=== PATIENT | female | born 1975 | race Caucasian/White ===

== ENCOUNTER → 2017-06-30 12:54 | Outpatient (CLI) | payer OTHER, SELFPAY ==
--- NOTE | 2017-06-30 13:00 | HPBI_ITS ---
MAMMOGRAPHY - BILATERAL SCREENING REASON FOR EXAM: Female, 42 years old. Routine annual screening examination. PERTINENT HISTORY: Grandmother with breast cancer. TECHNIQUE: Digital bilateral breast benoit (3D mammographic acquisition) in the CC and MLO projections. 2-D mediolateral oblique (MLO) and craniocaudad (CC) views of both breasts were obtained. CAD: Full Field Digital Mammography with Computer Added Detection was performed. COMPARISON: None. Baseline examination. FINDINGS: Breast Composition: The breasts are heterogeneously dense, which may obscure small masses. There are no dominant masses or suspicious calcifications. No other significant abnormalities are identified. Benign-appearing bilateral axillary lymph nodes. HPBI/SCREENING MAMM (CAD), BILAT IMPRESSION: Negative screening mammogram. Yearly followup mammogram recommended. (A) ASSESSMENT CATEGORY: BIRADS Category 2: Benign. A letter regarding these results will be sent to the patient by the facility within 30 days. Approximately 10% of breast cancers are not detected by mammography. A normal mammogram should not delay biopsy of a clinically suspicious abnormality. [id number] Electronically Signed: Beka Oakley MD at 15:37 EST Tel [phone], Service support ,
== END ==
PROVIDERS: Family Provider Family Medicine; PCP Family Medicine; Visit Provider Family Medicine
DX: Z12.31 Encounter for screening mammogram for malignant neoplasm of breast (principal)
CPT/HCPCS: 77063; 77067

== ENCOUNTER → 2018-03-13 11:54 | Outpatient (CLI) | payer OTHER, SELFPAY ==
--- NOTE | 2018-03-13 11:58 | RAD_ITS ---
STUDY: X-RAY - RIGHT FOOT CLINICAL: Female, 43 years old. Pain. TECHNIQUE: 3 view(s) of the foot. COMPARISON: 04/04/2014. FINDINGS: Normal talus, calcaneus, and tarsal bones. Normal visualized subtalar, talonavicular, calcaneocuboid, tarsal and tarsometatarsal articulations. Normal metatarsi. Normal metatarsophalangeal joint of the great toe. Normal tibial and fibular sesamoid bones. Normal interphalangeal joint of the great toe. Normal phalanges of the great toe. Normal second through fifth metatarsophalangeal joints. Normal interphalangeal joints and phalanges of the lesser toes. The soft tissue structures are unremarkable. There is no demonstrated fracture. RAD/Foot min 3 Views IMPRESSION: Normal x-ray examination of the foot. Electronically Signed: Chris Pastor MD at 12:44 EST , Service support ,
== END ==
PROVIDERS: Family Provider Family Medicine; PCP Family Medicine; Referring Provider Family Medicine; Visit Provider Family Medicine
DX: M79.671 Pain in right foot (principal)
CPT/HCPCS: 73630

== ENCOUNTER → 2018-03-19 11:37 | Outpatient (CLI) | payer OTHER, SELFPAY ==
--- NOTE | 2018-03-19 | LES_PTH ---
PATIENT: PAVEL APONTE LOC: [facility] U#:[id number] AGE/SX: 50/F ROOM: RE03/19/[address]: Dr. Eleazar Ramos MD : 1975 BED: DIS: SPEC #: [id number] RECD: 03/19/18 15:07 STATUS: FLAVIO KASANDRA #: [id number] KUNAL: 03/19/18 00:[address]: Eleazar Ramos DEPT: SURGICAL PATHOLOGY RECD BY: Iain Cardenas ENTERED: 03/19/18 15:08 SP TYPE: Lesion OTHR DR: Dr. Olvin Nicholson MD Tissues: Skin of neck, NOS Procedures: Surgery Specimen Level IV HEADER OPERATION: Shave biopsy PRE-OP DIAGNOSIS: Right neck lesion growing and bleeding TISSUE SUBMITTED: Right neck lesion MICROSCOPIC DIAGNOSIS Right neck lesion, shave biopsy: Consistent with inflamed seborrheic keratosis. RICKEY:neil 03/20/18 COMMENT Clinical correlation and appropriate follow up are necessary. MICROSCOPIC DESCRIPTION Slides are reviewed. GROSS DESCRIPTION Received is one container labeled with the patient's name and not further designated. The specimen consists of a light hughes shave biopsy of skin measuring 0.5 x 0.5 x 0.1 cm. The specimen is totally submitted in one cassette and after being bisected at embedding. / AM:neil 03/19/18 TC:1 [facility]: [id number]
== END ==
PROVIDERS: Family Provider Family Medicine; PCP Family Medicine; Referring Provider Family Medicine; Visit Provider Family Medicine
DX: L98.9 Disorder of the skin and subcutaneous tissue, unspecified (principal)
CPT/HCPCS: 88305

== ENCOUNTER → 2018-03-29 10:21 | Outpatient (CLI) | payer OTHER, SELFPAY ==
--- NOTE | 2018-03-29 10:38 | MRI_ITS ---
STUDY: MRI RIGHT MIDFOOT REASON FOR EXAM: Female, 43 years old. Pain and swelling. TECHNIQUE: Standardized fat and water weighted pulse sequences were obtained in all 3 orthogonal planes. COMPARISON: X-ray March 13, 2018. FINDINGS: Normal first tarsometatarsal articulation. Normal Lisfranc ligament. Normal second and third tarsometatarsal articulations. Normal cuboid fourth and cuboid fifth tarsometatarsal articulation. There is cortical thickening with marrow edema and periosteal reaction of the third metatarsal, series 4 image 15/30 series 6 image 14/24. Normal tibialis anterior tendon. Normal extensor hallucis longus tendon. Normal extensor digitorum longus tendons. Normal peroneus longus tendon and distal insertion. Normal peroneus brevis tendon and distal insertion. Normal intrinsic muscles of the mid and forefoot region. Normal extensor digitorum brevis muscle. Normal subcutis adipose space. MRI/Lower Ext/No Jt/w/o IMPRESSION: Stress fracture of the third metatarsal. Electronically Signed: Adrian Dewitt MD at 9:25 EST , Service support ,
--- OUTSIDE RECORDS SUMMARY | 2018-05-24 12:16 | XMS RPT_ITS ---
:1975 Author Organization OHIP Care Team Providers Name Role Phone Olvin Nicholson Attending Unavailable Olvin Nicholson Primary Care Unavailable Olvni Nicholson Attending Unavailable Olvin Nicholson Referring Unavailable Olvin Nicholson Primary Care Unavailable ASSESSMENT, HEALTH RISK Attending Unavailable Olvin Nicholson Primary Care Unavailable Olvin Nicholson Attending Unavailable Olvin Nicholson Referring Unavailable Olvin Nicholson Primary Care Unavailable Eleazar Ramos Attending Unavailable Eleazar Ramos Referring Unavailable Olvin Nicholson Primary Care Unavailable JOANIE LUTZ Attending Unavailable Delma Coffey Referring Unavailable Olvin Nicholson Primary Care Unavailable PROBLEMS PROBLEMS DATE TYPE CONDITION / ATTENDING STATUS SOURCE CODE 03/13/2018 Unknown M79.671 - Pain Lyn, Active Megan in right foot / [facility] M79.671(ICD-10) Hospital Repository 06/30/2017 Unknown Z12.31 - Lyn Active [place] Encounter for [facility] mammogram for Repository malignant neoplasm of breast / Z12.31(ICD-10) PROCEDURES PROCEDURES No Procedure Records FoundRESULTS RESULTS DEXA BONE DENSITY Observed: 04/10/2018 Status: F Source: [place] STUDY 1:07 PM [facility] REPOSITORY [facility] Imaging Services [address] [place] [address] Dexa Bone Density Study MR#: [id number] Acct: [id number] Name: PAVEL APONTE ANN Rep #: [id number] : 1975 F 43 From: Beka Oakley MD PCP: Olvin Nicholson MD Status: REG CLI Study: Dexa Bone Density Study Date of Exam: 04/10/18 Exam# [id number] Ordering Dr: Mina Nicholson MD STUDY: DUAL ENERGY X-RAY ABSORPTIOMETRY / DXA REASON FOR EXAM: Female, 43 years old. History of multiple fractures. TECHNIQUE: Bone Mineral Density (BMD) measurements of lumbar spine and bilateral hips were obtained. COMPARISON: Comparison is made with prior study dated March 08, 2016. FINDINGS: Lumbar Spine (L1-L4): g/cm2 (1.167) / T-score (0.0) / Z-score (0.0) Findings are suggestive of normal bone density with a low fracture risk. Left Femur Total: g/cm2 (0.801) / T-score (-1.6) / Z- score (-1.3) Left Femoral Neck: g/cm2 (0.803) / T-score (-1.7) / Z- score (-1.1) Right Femur Total: g/cm2 (0.73) / T-score (-1.8) / Z- score (-1.5) Right Femoral Neck: g/cm2 (0.789) / T-score (-1.8) / Z-score (-1.2) The T-Scores on the most recent prior examination were: Lumbar Spine (L1-L4): There has been improvement of bone density since the previous examination. Left Femur Total: which represents an improvement of 1.4%. Right Femur Total: which represents no significant change. . BD/Dexa Bone Density Study IMPRESSION: The patient is considered osteopenic as outlined below according to World Chon Organization (WHO) criteria with a moderate fracture risk. There has been improvement of bone density since the previous examination. Reference Information: The T-score is the number of standard deviations above or below the standard which is normal for young adults at their peak bone mineral density. The World Health Organization (WHO) interprets the T-scores as follows: Above -1 Normal bone density Between -1 and -2.5 Osteopenia Equal to / or below -2.5 Osteoporosis As a practical clinical guideline, osteopenia may be graded as follows: Mild -1 through -1.5 Moderate -1.6 through -2.0 Severe -2.1 through -2.4 The Z-score is the number of standard deviations above or below age-matched controls. A Z-score of less than -1.5 would be considered abnormal. References: 1. NIH Osteoporosis and Related Bone Diseases http://www.osteo.org 2. International Society for Clinical Densitometry http://www.iscd.org 3. National Osteoporosis Foundation http://www.nof.org Electronically Signed: Beka Oakley MD at 8:50 EST Tel [phone], Service support , CC: Olvin Nicholson MD Seconds Handler: Signed LOWER EXT/NO JT/W/O Observed: 03/29/2018 Status: F Source: [place] 10:38 AM [facility] REPOSITORY [facility] Imaging Services [address] [place] [address] Lower Ext/No Jt/w/o MR#: [id number] Acct: [id number] Name: PAVEL APONTE ANN Rep #: [id number] : 1975 F 43 From: Adrian Dewitt MD PCP: Olvin Nicholson MD Status: REG CLI Study: Lower Ext/No Jt/w/o Date of Exam: 03/29/18 Exam# [id number] Ordering Dr: Delma Coffey DPM STUDY: MRI RIGHT MIDFOOT REASON FOR EXAM: Female, 43 years old. Pain and swelling. TECHNIQUE: Standardized fat and water weighted pulse sequences were obtained in all 3 orthogonal planes. COMPARISON: X-ray March 13, 2018. FINDINGS: Normal first tarsometatarsal articulation. Normal Lisfranc ligament. Normal second and third tarsometatarsal articulations. Normal cuboid fourth and cuboid fifth tarsometatarsal articulation. There is cortical thickening with marrow edema and periosteal reaction of the third metatarsal, series 4 image 15/30 series 6 image 14/24. Normal tibialis anterior tendon. Normal extensor hallucis longus tendon. Normal extensor digitorum longus tendons. Normal peroneus longus tendon and distal insertion. Normal peroneus brevis tendon and distal insertion. Normal intrinsic muscles of the mid and forefoot region. Normal extensor digitorum brevis muscle. Normal subcutis adipose space. MRI/Lower Ext/No Jt/w/o IMPRESSION: Stress fracture of the third metatarsal. Electronically Signed: Adrian Dewitt MD at 9:25 EST , Service support , CC: KATHERYN Coffey; Olvin Nicholson MD Seconds Handler: Signed LESION (CHOOSE SITE) Observed: 03/19/2018 Status: F Source: [place] 12:00 AM [facility] REPOSITORY Patient: PAVEL APONTE : 1975 (43/F) Acct Num: [id number] Phys: Richard LEACH,Eleazar Unit Num: [id number] Loc: LABSPEC Specimen: [id number] Received: 03/19/18 - 1507 Spec Type: Lesion TISSUES 1 TISSUES: Skin of neck, NOS COMMENT Clinical correlation and appropriate follow up are necessary. GROSS DESCRIPTION Received is one container labeled with the patient's name and not further designated. The specimen consists of a light hughes shave biopsy of skin measuring 0.5 x 0.5 x 0.1 cm. The specimen is totally submitted in one cassette and after being bisected at embedding. / AM: 03/19/18 TC:1 CPT: 99888 HEADER OPERATION: Shave biopsy PRE-OP DIAGNOSIS: Right neck lesion growing and bleeding TISSUE SUBMITTED: Right neck lesion MICROSCOPIC DESCRIPTION Slides are reviewed. MICROSCOPIC DIAGNOSIS Right neck lesion, shave biopsy: Consistent with inflamed seborrheic keratosis. SJ: 03/20/18 Signed Juan Nunez 03/20/18 <signature on file> Performed By: #### PLES #### [facility] [address] [place], [place], [address] FOOT MIN 3 VIEWS Observed: 03/13/2018 Status: F Source: [place] 11:58 AM [facility] REPOSITORY [facility] Imaging Services [address] [place] [address] Foot min 3 Views MR#: [id number] Acct: [id number] Name: PAVEL APONTE Rep #: [id number] : 1975 F 43 From: Chris Pastor MD PCP: Olvin Nicholson MD Status: REG CLI Study: Foot min 3 Views Date of Exam: 03/13/18 Exam# [id number] Ordering Dr: Mina Nicholson MD STUDY: X-RAY - RIGHT FOOT CLINICAL: Female, 43 years old. Pain. TECHNIQUE: 3 view(s) of the foot. COMPARISON: 04/04/2014. FINDINGS: Normal talus, calcaneus, and tarsal bones. Normal visualized subtalar, talonavicular, calcaneocuboid, tarsal and tarsometatarsal articulations. Normal metatarsi. Normal metatarsophalangeal joint of the great toe. Normal tibial and fibular sesamoid bones. Normal interphalangeal joint of the great toe. Normal phalanges of the great toe. Normal second through fifth metatarsophalangeal joints. Normal interphalangeal joints and phalanges of the lesser toes. The soft tissue structures are unremarkable. There is no demonstrated fracture. RAD/Foot min 3 Views IMPRESSION: Normal x-ray examination of the foot. Electronically Signed: Chris Pastor MD at 12:44 EST , Service support , CC: Olvin Nicholson MD Seconds Handler: Signed CBC, EMPLOYEE Collected: 12/16/2017 Status: F Source: [place] 10:04 AM [facility] REPOSITORY TYPE CODE TESTS RESULT OUT OF RANGE REFERENCE UNITS LAB L100.1000 4.4-11.0 K/mm3 Normal WBC 7.2 LAB L100.1200 4.2-5.4 M/mm3 Low RBC 4.10 LAB L100.1300 12.0-15.0 g/dl Normal HGB 13.7 LAB L100.1400 37-47 % Normal HCT 40.1 LAB L100.1500 81-99 fL Normal MCV 97.8 LAB L100.1600 27.0-32.0 pg High MCH 33.4 LAB L100.1700 32-36 g/gl Normal MCHC 34.2 LAB L100.1810 11.6-14.6 % Normal RDW CV 12.3 LAB L100.1820 35.1-43.9 fl Normal RDW SD 43.1 LAB L100.1900 150-450 K/mm3 Normal PLT 246 LAB L100.2000 6.2-12.0 fl Normal MPV 10.6 LAB L100.2110 47-70 % High NEUT% 70.6 LAB L100.2210 19-41 % Normal LY% 19.6 LAB L100.2310 0-10 % Normal MONO% 8.5 LAB L100.2410 0-5 % Normal EO% 0.6 LAB L100.2510 0-1 % Normal BASO% 0.1 LAB L100.2620 2.0-7.7 X10 3/uL Normal Absolute Neut 5.1 LAB L100.2720 0.83-4.51 X10 3/ul Normal Absolute Lymph 1.41 Performed By: #### L100.0200 #### [facility] [address] [place], [place], [address] URINALYSIS, EMPLOYEE Collected: 12/16/2017 Status: F Source: [place] 10:04 AM [facility] REPOSITORY TYPE CODE TESTS RESULT OUT OF RANGE REFERENCE UNITS LAB L400.3000 Yellow COLOR Normal Yellow LAB L400.3050 Clear Normal CLARITY Clear LAB L400.3200 Normal mg/dl Normal GLUCOSE, UR Normal LAB L400.3300 Negative mg/dL Normal BILIRUBIN URINE Negative LAB L400.3400 Negative mg/dl Normal KETONE UR Negative LAB L400.3465 1.002-1.030 Normal SP.GR. DIPSTX 1.010 LAB L400.3550 5.0 - 8.0 pH UR Normal 7.0 LAB L400.3600 Negative mg/dl PROT Normal DIPSTX Negative LAB L400.3700 Normal mg/dl Normal UROBILI Normal LAB L400.3750 Negative Normal NITRITE UR Negative LAB L400.3780 Negative /ul High 10 OCCULT BLOOD-UR LAB L400.3800 Negative /ul High LEUK 25 ESTERASE Performed By: #### L400.0100 #### [facility] [address] [facility], [address] EMPLOYEE PROFILE Collected: 12/16/2017 Status: F Source: [place] 10:04 AM [facility] REPOSITORY TYPE CODE TESTS RESULT OUT OF RANGE REFERENCE UNITS LAB L501.0100 74-106 mg/dL Normal GLU 89 Result Comment: Please note revised GLUCOSE reference range effective 2017. LAB L501.1000 7-18 mg/dL Normal BUN 8 LAB L501.1100 0.55-1.02 mg/dL Normal CREAT,SERUM 0.81 Result Comment: The validity of the calculated GFR AND GFRAA in patients over 70 years has not been determined. Clinical correlation is essential. LAB L501.1110 >60 mL/min Normal EST GFR 82 Result Comment: Non- GFR Calc LAB L501.1115 >60 mL/min Normal EST GFR - AA 99 Result Comment: GFR Calc LAB L501.1300 10-20 RATIO Low BUN/CRE 9.9 LAB L501.1400 2.6-6.0 mg/dL Normal URIC 5.7 Result Comment: The drugs N-Acetylcysteine and Metamizole may falsely depress this assay. LAB L501.1500 6.4-8.2 g/dL Normal T PROT 7.8 LAB L501.1800 3.2-5.0 g/dL Normal ALB 3.9 LAB L501.1950 2.2-4.2 g/dL Normal GLOB 3.9 LAB L501.2000 0.9-2.4 RATIO Normal A/G 1.0 LAB L501.2200 8.5-10.1 mg/dL Normal CA 9.0 LAB L501.2300 2.5-4.9 mg/dL Normal PHOS 3.2 LAB L501.4100 15-37 U/L Normal AST 16 LAB L501.4305 45-117 U/L Normal ALK P 95 LAB L501.4405 13-56 U/L Normal ALT 24 LAB L501.4600 0.20-1.00 mg/dL Normal T BILI 0.50 LAB L501.4700 0.00-0.30 mg/dL Normal D BILI 0.15 LAB L501.4900 200 mg/dL Normal CHOL 183 Result Comment: <200 mg/dL Desirable 200-240 mg/dL Borderline >240 mg/dL High Risk LAB L501.5000 mg/dL Normal TRIG 125 Result Comment: The drugs N-Acetylcysteine and Metamizole may falsely depress this assay. Serum Triglycerides Reference Interval Normal <150 mg/dL Borderline high 150 - 199 mg/dL High 200 - 499 mg/dL Very High > or = 500 mg/dL LAB L501.5300 136-145 mmol/L Normal NA 137 LAB L501.5600 3.5-5.1 mmol/L Normal K 4.5 LAB L501.5900 98-107 mmol/L Normal CL 104 LAB L501.6100 21.0-32.0 mmol/L Normal CO2 29.0 LAB L501.6200 5-15 Low 4 GAP LAB L501.6400 mg/dL Normal HDL 75 Result Comment: The drugs N-Acetylcysteine and Metamizole may falsely depress this assay. Reference Range HDL <40 mg/dL Low HDL Cholesterol HDL >or= 60 mg/dL High HDL Cholesterol LAB L501.6475 Normal CHOL:HDL 2.40 LAB L501.6500 0-130 mg/dL Normal LDL 83 LAB L501.6600 5-40 mg/dL Normal VLDL 25 LAB L504.2610 84-246 U/L Normal LDH 173 Performed By: #### L500.2900 #### [facility] [address] [facility]. [place], [place], [address] NICOTINE URINE DRUG Collected: 12/16/2017 Status: F Source: [place] SCREEN 10:04 AM [facility] REPOSITORY TYPE CODE TESTS RESULT OUT OF RANGE REFERENCE UNITS LAB L505.6250 TO BE Normal CONFIRMED Result Comment: CONFIRMATORY TESTING FOR ALL POSITIVE URINE DRUG SCREEN RESULTS WILL ONLY BE SENT OUT UPON PHYSICIAN ORDER. The results of Urine Drug Screen methods provide only preliminary analytical test results. A more specific alternate chemical method must be used in order to obtain a confirmed analytical result. Gas chromatography/mass spectrometery (GC/MS) is the preferred confirmatory method. Clinical consideration and professional judgement should be applied to any drug of abuse test result, particularly when preliminary positive results are used. LAB L505.6270 <200 ng/mL Normal COT DRG Negative SCREEN Result Comment: Cotinine is the first-stage metabolite of Nicotine. Performed By: #### L505.6240 #### [facility] [address] [facility]. [place], [place], [address] SCREENING MAMM (CAD), Observed: 06/30/2017 Status: F Source: [place] BIL[place] 1:00 PM [facility] REPOSITORY [facility] Imaging Services [address] [place] [address] SCREENING MAMM (CAD), BILAT MR#: [id number] Acct: [id number] Name: PAVEL APONTE Rep #: [id number] : 1975 F 42 From: Beka Oakley MD PCP: Olvin Nicholson MD Status: REG CLI Study: SCREENING MAMM (CAD), BILAT Date of Exam: 06/30/17 Exam# [id number] Ordering Dr: Mina Nicholson MD MAMMOGRAPHY - BILATERAL SCREENING REASON FOR EXAM: Female, 42 years old. Routine annual screening examination. PERTINENT HISTORY: Grandmother with breast cancer. TECHNIQUE: Digital bilateral breast benoit (3D mammographic acquisition) in the CC and MLO projections. 2-D mediolateral oblique (MLO) and craniocaudad (CC) views of both breasts were obtained. CAD: Full Field Digital Mammography with Computer Added Detection was performed. COMPARISON: None. Baseline examination. FINDINGS: Breast Composition: The breasts are heterogeneously dense, which may obscure small masses. There are no dominant masses or suspicious calcifications. No other significant abnormalities are identified. Benign-appearing bilateral axillary lymph nodes. HPBI/SCREENING MAMM (CAD), BILAT IMPRESSION: Negative screening mammogram. Yearly followup mammogram recommended. (A) ASSESSMENT CATEGORY: BIRADS Category 2: Benign. A letter regarding these results will be sent to the patient by the facility within 30 days. Approximately 10% of breast cancers are not detected by mammography. A normal mammogram should not delay biopsy of a clinically suspicious abnormality. [id number] Electronically Signed: Beka Oakley MD at 15:37 EST Tel [phone], Service support , CC: Olvin Nicholson MD Seconds Handler: Signed ALLERGIES ALLERGIES DATE TYPE / CODE NAME / CODE REACTION SEVERITY SOURCE 04/04/2014 Drug amoxicillin/ Unknown Unknown [facility] Allergy/4160 [id number]([facility] [address](SNOMED XNORM) Repository CT) ENCOUNTERS ENCOUNTERS ADMIT/DISCHARGE ACCOUNT ADMITTING ENCOUNTER LOCATION SOURCE NUMBER CLASS 04/10/2018 [id number] Ambulatory Megan [facility]ett 5 [facility] ing:OPBD Repository 03/29/2018 [id number] Ambulatory [place] Megan 1 [facility] ing:MRI Repository 03/19/2018 [id number] Ambulatory Megan Crockett 9 [facility] ing:LABSPEC Repository 03/13/2018 [id number] Ambulatory [place] [facility] 0 [facility] ing:MTRAD Repository 12/15/2017 [id number] Ambulatory [place] [facility] 0 [facility] ing:HW Repository 06/30/2017 [id number] Ambulatory [place] Cro[place] 7 [facility] ing:BI Repository PAYERS PAYERS ENCOUNTER GUARANTOR PAYER SUBSCRIBER SOURCE 04/10/2018 RICCO Jones Primary Insurance:[facility] [facility] [facility] STERNERDOB: [facility] [place]: Repository [address]Mbr: [phone]) [id number] [phone] () Date:9610-97-11YS [address] [address], [place] [address]WU: CHECK WEBSITE 04/10/2018 Secondary NOT GIVENUNK Megan Insurance:SELF PAY [facility] Number: Effective Repository Date:2017-12-27 03/29/2018 RICCO Jones Primary Insurance:[facility] [facility]: [facility] [id number] Number: Repository [id number]: [phone]) [id number] [phone] (HP) Date:0974-23-65AM [address] [address], [place] [address]CO: CHECK WEBSITE 03/29/2018 Secondary NOT GIVENUNK Megan Insurance:SELF PAY [facility] Number: Effective Repository Date:2018-03-19 03/19/2018 RICCO F Primary Insurance[facility] [facility] [id number] Number: Repository [id number]: [phone] [id number] [phone] (HP) Date:0003-67-39SL [address] [address], [place] [address]JH: CHECK WEBSITE 03/19/2018 Secondary NOT GIVENUNK [place] Insurance:SELF PAY [facility] Number: Effective Repository Date:2018-03-19 03/13/2018 RICCO F Primary Insurance:[place] [id number] [facility]: [facility] 1935[place]34-[place] Number: Repository [id number]: [phone] [id number] [phone] () Date:7871-07-70FE [address] [address], [place] [address]GZ: CHECK WEBSITE 03/13/2018 Secondary NOT GIVENUNK Megan Insurance:SELF PAY [facility] Number: Effective Repository Date:2018-03-13 12/15/2017 RICCO F Primary NOT GIVENUNK Megan [id number] Insurance:SELF PAY [place] Number: Effective Repository [id number]: ([phone]) Date:2017-12-15 [phone] (HP) 06/30/2017 RICCO F Primary Insurance:[place] [id number] [facility] [id number] Number: Repository [id number]: [id number] [phone] Date:7623-62-60BM [address] () [address], [place] [address]FA: CHECK WEBSITE 06/30/2017 Secondary NOT GIVENUNK Megan Insurance:SELF PAY [facility] Number: Effective Repository Date:2017-06-07
== END ==
PROVIDERS: Family Provider Family Medicine; PCP Family Medicine; Referring Provider Podiatrist Foot & Ankle Surgery
DX: M79.671 Pain in right foot (principal)
CPT/HCPCS: 73718

== ENCOUNTER → 2018-04-10 13:04 | Outpatient (CLI) | payer OTHER, SELFPAY ==
--- NOTE | 2018-04-10 13:07 | BD_ITS ---
STUDY: DUAL ENERGY X-RAY ABSORPTIOMETRY / DXA REASON FOR EXAM: Female, 43 years old. History of multiple fractures. TECHNIQUE: Bone Mineral Density (BMD) measurements of lumbar spine and bilateral hips were obtained. COMPARISON: Comparison is made with prior study dated March 08, 2016. FINDINGS: Lumbar Spine (L1-L4): g/cm2 (1.167) / T-score (0.0) / Z-score (0.0) Findings are suggestive of normal bone density with a low fracture risk. Left Femur Total: g/cm2 (0.801) / T-score (-1.6) / Z-score (-1.3) Left Femoral Neck: g/cm2 (0.803) / T-score (-1.7) / Z-score (-1.1) Right Femur Total: g/cm2 (0.73) / T-score (-1.8) / Z-score (-1.5) Right Femoral Neck: g/cm2 (0.789) / T-score (-1.8) / Z-score (-1.2) The T-Scores on the most recent prior examination were: Lumbar Spine (L1-L4): There has been improvement of bone density since the previous examination. Left Femur Total: which represents an improvement of 1.4%. Right Femur Total: which represents no significant change. . BD/Dexa Bone Density Study IMPRESSION: The patient is considered osteopenic as outlined below according to World Chon Organization (WHO) criteria with a moderate fracture risk. There has been improvement of bone density since the previous examination. Reference Information: The T-score is the number of standard deviations above or below the standard which is normal for young adults at their peak bone mineral density. The World Health Organization (WHO) interprets the T-scores as follows: Above -1 Normal bone density Between -1 and -2.5 Osteopenia Equal to / or below -2.5 Osteoporosis As a practical clinical guideline, osteopenia may be graded as follows: Mild -1 through -1.5 Moderate -1.6 through -2.0 Severe -2.1 through -2.4 The Z-score is the number of standard deviations above or below age-matched controls. A Z-score of less than -1.5 would be considered abnormal. References: 1. NIH Osteoporosis and Related Bone Diseases http://www.osteo.org 2. International Society for Clinical Densitometry http://www.iscd.org 3. National Osteoporosis Foundation http://www.nof.org Electronically Signed: Beka Oakley MD at 8:50 EST Tel [phone], Service support ,
--- OUTSIDE RECORDS SUMMARY | 2018-05-27 16:31 | XMS RPT_ITS ---
:1975 Author Organization OHIP Support Name Relationship Address Phone FAYLEANNEE Unavailable [address] + [place] [address] WC Unavailable [address] + [place] [address] RICCO APONTE Unavailable [address] + [place] [address] WC Unavailable [address] + [place] [address] RICCO APONTE Unavailable [address] + [place] [address] WC Unavailable [address] + [place] [address] RICCO APONTE Unavailable [address] + [place] [address] WC Unavailable [address] + [place] [address] RICCO APONTE Unavailable [address] + [place] [address] WC Unavailable [address] + [place] [address] RICCO APONTE Unavailable [address] + [place] [address] WC Unavailable [address] + [place] [address] RICCO APONTE Unavailable [address] + [place] [address] WC Unavailable [address] + [place] [address] RICCO APONTE Unavailable [address] + [place] [address] WC Unavailable [address] + [place] [address] RICCO APONTE Unavailable [address] + [place] [address] [facility] Unavailable [address] + [place] [address] Care Team Providers Name Role Phone Olvin Nicholson Attending Unavailable Ranney, Christopher Primary Care Unavailable Ranney, Christanner Attending Unavailable Ranney, Christopher Primary Care Unavailable Lyn, Olvin Attending Unavailable Ranney, Christopher Referring Unavailable Ranney, Christopher Primary Care Unavailable ASSESSMENT, HEALTH RISK Attending Unavailable Ranney, Christopher Primary Care Unavailable Ranlogan, Anderser Attending Unavailable Ranney, Christopher Referring Unavailable Ranney, Christopher Primary Care Unavailable Lyn, Olvin Attending Unavailable Lyn, Christopher Referring Unavailable Ranney, Christopher Primary Care Unavailable Ranlogan, Olvin Attending Unavailable Ranney, Christopher Referring Unavailable Ranney, Christopher Primary Care Unavailable Eleazar Ramos Attending Unavailable Eleazar Ramos Referring Unavailable [facility] Unavailable JOANIE LUTZ Attending Unavailable Delma Coffey Referring Unavailable Ranney, Christopher Primary Care Unavailable PROBLEMS PROBLEMS DATE TYPE CONDITION / ATTENDING STATUS SOURCE CODE 03/13/2018 Unknown M79.671 - Pain Jonologan, Active [place] in right foot / [facility] M79.671(ICD-10) Hospital Repository 06/30/2017 Unknown Z12.31 - Lyn Active [place] Encounter for [facility] mammogram for Repository malignant neoplasm of breast / Z12.31(ICD-10) PROCEDURES PROCEDURES No Procedure Records FoundRESULTS RESULTS LOWER EXT/NO JT/W/O Observed: 05/17/2018 Status: F Source: [place] 6:06 PM [facility] REPOSITORY [facility] Imaging Services [address] [place] [address] Lower Ext/No Jt/w/o MR#: [id number] Acct: [id number] Name: PAVEL APONTE ANN Rep #: [id number] : 1975 F 43 From: Sylvester Rosado MD PCP: Olvin Nicholson MD Status: REG CLI Study: Lower Ext/No Jt/w/o Date of Exam: 05/17/18 Exam# [id number] Ordering Dr: Mina Nicholson MD STUDY: MRI LEFT MIDFOOT REASON FOR EXAM: Female, 43 years old. Foot swelling with distal fifth metatarsal pain. No trauma. TECHNIQUE: Standardized fat and water weighted pulse sequences were obtained in all 3 orthogonal planes. COMPARISON: X-rays of the left foot dated May 08, 2018. FINDINGS: Normal talonavicular articulation. Normal calcaneocuboid articulation. Normal navicular-cuneiform articulations. Normal intercuneiform articulations. Normal first tarsometatarsal articulation. Normal Lisfranc ligament. Normal second and third tarsometatarsal articulations. Normal cuboid fourth and cuboid fifth tarsometatarsal articulation. Normal first through fifth metatarsi. Normal tibialis anterior tendon. Normal extensor hallucis longus tendon. Normal extensor digitorum longus tendons. Normal peroneus longus tendon and distal insertion. Normal peroneus brevis tendon and distal insertion. Normal intrinsic muscles of the mid and forefoot region. Normal extensor digitorum brevis muscle. Normal subcutis adipose space. MRI/Lower Ext/No Jt/w/o IMPRESSION: Normal MRI of the midfoot. Electronically Signed: Sylvester Rosado MD at 14:40 EST , Service support , CC: Olvin Nicholson MD Health Claims Examiner: Signed FOOT MIN 3 VIEWS Observed: 05/08/2018 Status: F Source: [place] 3:59 PM [facility] [place] [facility] Imaging Services [address] [place] [address] Foot min 3 Views MR#: [id number] Acct: [id number] Name: PAVEL APONTE ANN Rep #: [id number] : 1975 F 43 From: Jose Coburn MD PCP: Olvin Nicholson MD Status: REG CLI Study: Foot min 3 Views Date of Exam: 05/08/18 Exam# [id number] Ordering Dr: Mina Nicholson MD STUDY: X-RAY - LEFT FOOT CLINICAL: Fifth digit/metatarsal pain, no specific injury. TECHNIQUE: 3 view(s) of the foot. COMPARISON: None. FINDINGS: There is a small plantar calcaneal enthesophyte. Normal visualized subtalar, talonavicular, calcaneocuboid, tarsal and tarsometatarsal articulations. Normal metatarsi. Normal metatarsophalangeal joint of the great toe. Normal tibial and fibular sesamoid bones. Normal interphalangeal joint of the great toe. Normal phalanges of the great toe. Normal second through fifth metatarsophalangeal joints. Normal interphalangeal joints and phalanges of the lesser toes. The soft tissue structures are unremarkable. RAD/Foot min 3 Views IMPRESSION: Small plantar calcaneal enthesophyte. Otherwise, unremarkable x-ray examination of the left foot. Electronically Signed: Jose Coburn MD at 9:48 EST Tel , Service support , CC: Olvin Nicholson MD Health Claims Examiner: Signed VITAMIN D,25 HYDROXY Collected: 04/19/2018 Status: F Source: [place] 10:48 AM [facility] [place] TYPE CODE TESTS RESULT OUT OF REFERENCE UNITS RANGE LAB L506.1000 29.95-100.01 ng/mL Low Vitamin D 27.5 25-OH Result Comment: Vitamin D 25(OH) Status Range Deficiency <20 ng/mL (50nmol/L) Insuffciency 20 - 30 ng/mL (50 - 75 nmol/L) Sufficiency 30 - 100 ng/mL (75 - 250 nmol/L) Toxicity >100 ng/mL (>250 nmol/L) Performed By: #### L506.1000 #### [facility] [address] [place], [address] PTHIN Collected: 04/19/2018 Status: F Source: [place] 10:48 AM [facility] [place] TYPE CODE TESTS RESULT OUT OF RANGE REFERENCE UNITS LAB L509.1000 18.4-80.1 pg/mL Normal PTHIN 26.6 Performed By: #### L509.1000 #### [facility] [address] [place], [address] BASIC METABOLIC Collected: 04/19/2018 Status: F Source: [place] PROFILE (BMP) 10:48 AM [facility] [place] TYPE CODE TESTS RESULT OUT OF RANGE REFERENCE UNITS LAB L501.0100 74-106 mg/dL Normal GLU 106 Result Comment: Fasting Glucose result from 100 to 125 mg/dL suggests IMPAIRED HOMEOSTASIS per A.D.A. criteria. Please note revised GLUCOSE reference range effective 2017. LAB L501.1000 7-18 mg/dL Normal BUN 13 LAB L501.1100 0.55-1.02 mg/dL Normal CREAT,SERUM 0.78 Result Comment: The validity of the calculated GFR AND GFRAA in patients over 70 years has not been determined. Clinical correlation is essential. LAB L501.1110 >60 mL/min Normal EST GFR 85 Result Comment: Non- GFR Calc LAB L501.1115 >60 mL/min Normal EST GFR - AA 103 Result Comment: GFR Calc LAB L501.1300 10-20 RATIO Normal BUN/CRE 16.7 LAB L501.2200 8.5-10.1 mg/dL CA Normal 9.0 LAB L501.5300 136-145 mmol/L NA Normal 140 LAB L501.5600 3.5-5.1 mmol/L K Normal 3.8 LAB L501.5900 98-107 mmol/L CL Normal 105 LAB L501.6100 21.0-32.0 mmol/L Normal CO2 27.0 LAB L501.6200 5-15 Normal GAP 8 Performed By: #### L500.2500, L501.2300, L501.5200, L501.9520 #### [facility] [address] [place], [address] PHOSPHORUS Collected: 04/19/2018 Status: F Source: [place] 10:48 AM [facility] [place] TYPE CODE TESTS RESULT OUT OF RANGE REFERENCE UNITS LAB L501.2300 2.5-4.9 mg/dL Normal PHOS 3.8 Performed By: #### L500.2500, L501.2300, L501.5200, L501.9520 #### [facility] [address] [place], [address] MAGNESIUM Collected: 04/19/2018 Status: F Source: [place] 10:48 AM [facility] [place] TYPE CODE TESTS RESULT OUT OF RANGE REFERENCE UNITS LAB L501.5200 1.6-2.6 mg/dL Normal MG 1.9 Performed By: #### L500.2500, L501.2300, L501.5200, L501.9520 #### [facility] [address] [place], [address] THYROID STIM HORMONE Collected: 04/19/2018 Status: F Source: [place] (TSH) 10:48 AM [facility] [place] TYPE CODE TESTS RESULT OUT OF RANGE REFERENCE UNITS LAB L501.9520 0.358-3.74 uIU/mL Normal TSH 1.93 Performed By: #### L500.2500, L501.2300, L501.5200, L501.9520 #### [facility] [address] [place], [address] CALCIUM IONIZED Collected: 04/19/2018 Status: F Source: [place] 10:48 AM [facility] [place] TYPE CODE TESTS RESULT OUT OF RANGE REFERENCE UNITS LAB L3100.9600 4.5-5.6 mg/dL Normal IONIZED CA 5.4 Result Comment: Performed at: - [facility] [id number] Driving Instructor: Alex Topete PhD, Phone: [phone] Performed By: #### L3100.9600 #### [facility] (refer to report for specific site) refer to report for address and phone number DEXA BONE DENSITY Observed: 04/10/2018 Status: F Source: [place] STUDY 1:07 PM [facility] [place] [facility] Imaging Services [address] [place] [address] Dexa Bone Density Study MR#: [id number] Acct: [id number] Name: PAVEL APONTE Rep #: [id number] : 1975 F 43 From: Beka Oakley MD PCP: Olvin Nicholson MD Status: REG CLI Study: Dexa Bone Density Study Date of Exam: 04/10/18 Exam# [id number] Ordering Dr: Mina Nicholson MD STUDY: DUAL [...] Beka Oakley MD at 8:50 EST Tel [phone], Service support , CC: Olvin Nicholson MD Health Claims Examiner: Signed LOWER EXT/NO JT/W/O Observed: 03/29/2018 Status: F Source: [place] 10:38 AM [facility] [place] [facility] Imaging Services [address] [place] [address] Lower Ext/No Jt/w/o MR#: [id number] Acct: [id number] Name: PAVEL APONTE ANN Rep #: [id number] : 1975 F 43 From: Adrian Dewitt MD PCP: Olvin Nicholson MD Status: REG CLI Study: Lower Ext/No Jt/w/o Date of Exam: 03/29/18 Exam# [id number] Ordering Dr: Delma Coffey DPM STUDY: MRI [...] , CC: KATHERYN Coffey; Olvin Nicholson MD Health Claims Examiner: Signed LESION (CHOOSE SITE) Observed: 03/19/2018 Status: F Source: [place] 12:00 AM [facility] [place] Patient: PAVEL APONTE : 1975 (43/F) Acct Num: [id number] Phys: Richard LEACH,Eleazar Unit Num: [id number] Loc: [facility] Specimen: [id number] Received: 03/19/18 - 1507 Spec Type: Lesion [...] and after being bisected at embedding. / AM:neil 03/19/18 TC:1 CPT: 59648 HEADER OPERATION: Shave biopsy PRE-OP DIAGNOSIS: Right neck lesion growing and bleeding TISSUE SUBMITTED: Right neck lesion MICROSCOPIC DESCRIPTION Slides are reviewed. MICROSCOPIC DIAGNOSIS Right neck lesion, shave biopsy: Consistent with inflamed seborrheic keratosis. SJ:neil 03/20/18 Signed Juan Nunez 03/20/18 <signature on file> Performed By: #### PLES #### [facility] [address] [facility] [place], [place], [address] FOOT MIN 3 VIEWS Observed: 03/13/2018 Status: F Source: [place] 11:58 AM [facility] [place] [facility] Imaging Services [address] [place] [address] Foot min 3 Views MR#: [id number] Acct: [id number] Name: PAVEL APONTE ANN Rep #: [id number] : 1975 F 43 From: Chris Pastor MD PCP: Olvin Nicholson MD Status: REG CLI Study: Foot min 3 Views Date of Exam: 03/13/18 Exam# [id number] Ordering Dr: Mina Nicholson MD STUDY: X-RAY [...] Service support , CC: Olvin Nicholson MD Health Claims Examiner: Signed CBC, EMPLOYEE Collected: 12/16/2017 Status: F Source: [place] 10:04 AM [facility] [place] TYPE CODE TESTS RESULT OUT OF [...] Lymph 1.41 Performed By: #### L100.0200 #### [facility] [address] [place], [address] URINALYSIS, EMPLOYEE Collected: 12/16/2017 Status: F Source: [place] 10:04 AM [facility] [place] TYPE CODE TESTS RESULT OUT OF [...] 25 ESTERASE Performed By: #### L400.0100 #### [facility] [address] [facility] [address] [place], [place], [address] EMPLOYEE PROFILE Collected: 12/16/2017 Status: F Source: [place] 10:04 [facility] REPOSITORY TYPE CODE TESTS RESULT OUT OF [...] LDH 173 Performed By: #### L500.2900 #### [facility] [address] [place], [address] NICOTINE URINE DRUG Collected: 12/16/2017 Status: F Source: [place] SCREEN 10:04 AM [facility] [place] TYPE CODE TESTS RESULT OUT OF [...] of Nicotine. Performed By: #### L505.6240 #### [facility] [address] [facility] [place], [address] SCREENING MAMM (CAD), Observed: 06/30/2017 Status: F Source: [place] BILAT 1:00 PM [facility] [place] [facility] Imaging Services [address] [place] [address] SCREENING MAMM (CAD), BILAT MR#: [id number] Acct: [id number] Name: PAVEL APONTE ANN Rep #: [id number] : 1975 F 42 From: Beka Oakley MD PCP: Olvin Nicholson MD Status: [facility] CLI Study: SCREENING MAMM (CAD), BILAT Date of Exam: 06/30/17 Exam# [id number] Ordering Dr: Mina Nicholson MD MAMMOGRAPHY - [...] delay biopsy of a clinically suspicious abnormality. [id number] Electronically Signed: Beka Oakley MD at 15:37 EST Tel [phone], Service support , CC: Olvin Nicholson MD Health Claims Examiner: Signed ALLERGIES ALLERGIES DATE TYPE / CODE NAME / CODE REACTION SEVERITY SOURCE 04/04/2014 Drug amoxicillin/ Unknown Unknown [facility] Allergy/4160 [id number]([facility] [address]133(SNOMED XNORM) Repository CT) ENCOUNTERS ENCOUNTERS ADMIT/DISCHARGE ACCOUNT ADMITTING ENCOUNTER LOCATION SOURCE NUMBER CLASS 05/17/2018 [id number] Amb[place] 8 [facility] ing:MRI Repository 05/08/2018 [id number] Ambulatory [place] 2 [facility] ing:MTRAD Repository 04/19/2018 [id number] Ambulatory [place] 6 [facility] ing:LAB Repository 04/10/2018 [id number] Ambulatory [place] 5 [facility] ing:OPBD Repository 03/29/2018 [id number] Ambulatory [place] 1 [facility] ing:MRI Repository 03/19/2018 [id number] Ambulatory [place] 9 [facility] ing:LABSPEC Repository 03/13/2018 [id number] Ambulatory [place] 0 [facility] ing:MTRAD Repository 12/15/2017 [id number] Ambulatory [place] 0 [facility] ing:HW Repository 06/30/2017 [id number] Ambulatory [place] 7 [facility] ing:BI Repository PAYERS PAYERS ENCOUNTER GUARANTOR PAYER SUBSCRIBER SOURCE 05/17/2018 RICCO Jones Primary Insurance:[place] [id number] [facility] [id number] Number: Repository [address]Uyb: 330 [id number] [phone] () Date:5448-25-74SR [address] [address], [place] [address]LR: CHECK WEBSITE 05/17/2018 Secondary NOT GIVENUNK [place] Insurance:SELF PAY [facility] Number: Effective Repository Date:2018-05-16 05/08/2018 RICCO Jones Primary Insurance:[place] [id number] [facility] [id number] Number: Repository [address]Mgw: 330 [id number] [phone] () Date:6326-72-68ZU [address] [address], [place] [address]CR: CHECK WEBSITE 05/08/2018 Secondary NOT GIVENUNK [place] Insurance:SELF PAY [facility] Number: Effective Repository Date:2018-05-08 04/19/2018 RICCO Jones Primary Insurance:[place] [id number] [facility] [id number] Number: Repository [address]Qey: 330 [id number] [phone] (HP) Date:2085-49-31GS [address] [address], [place] [address]DN: CHECK WEBSITE 04/19/2018 Secondary NOT GIVENUNK [place] Insurance:SELF PAY [facility] Number: Effective Repository Date:2018-04-19 04/10/2018 RICCO F Primary Insurance:[place] [id number] [facility] [id number], [place] Number: Repository [address]Loq: 330 [id number] [phone] (HP) Date:3955-42-41ZW [address] [address]FRYDQCQCD, [place] [address]KM: CHECK WEBSITE 04/10/2018 Secondary NOT GIVENUNK [place] Insurance:SELF PAY [facility] Number: Effective Repository Date:2017-12-27 03/29/2018 RICCO F Primary Insurance:[facility] [place] [id number] [facility] [id number] Number: Repository [address]Wdk: 330 [id number] [phone] () Date:5331-35-31MP [address] [address]XGMYGCNWN, [place] [address]DD: CHECK WEBSITE 03/29/2018 Secondary NOT GIVENUNK [place] Insurance:SELF PAY [facility] Number: Effective Repository Date:2018-03-19 03/19/2018 RICCO F Primary Insurance:[facility] [place] [id number] [facility]: [facility] [id number] Number: Repository [address]Bkh: 330 [id number] [phone] (HP) Date:5726-11-38XG [address] [address], [place] [address]YZ: CHECK WEBSITE 03/19/2018 Secondary NOT GIVENUNK [place] Insurance:SELF PAY [facility] Number: Effective Repository Date:2018-03-19 03/13/2018 RICCO Jones Primary Insurance:[facility]1039 [facility][1]B: Community [address] [facility] 7544-12-21[place]ESpring [place], [place] Number: Repository [address]Uit: 330 [id number] [phone] (HP) Date:1812-09-05KZ [address] [address]IUTFCNQ, [place] [address]KA: CHECK WEBSITE 03/13/2018 Secondary NOT GIVENUNK [place] Insurance:SELF PAY [facility] Number: Effective Repository Date:2018-03-13 12/15/2017 RICCO Jones Primary NOT GIVENUNK [place] [id number] Insurance:SELF PAY [place] Number: Effective Repository [address]Gkb: [phone]) Date:2017-12-15 [phone] (HP) 06/30/2017 RICCO Jones Primary Insurance:[facility]10[address] [facility]: [facility] [id number] Number: Repository [address]Aai: [id number] [phone] Date:4870-45-04EM [address] ([place]) [address]B[place]XLGBFE, [place] [address]MR: CHECK WEBSITE 06/30/2017 Secondary NOT GIVENUNK [place] Insurance:SELF PAY [facility] Number: Effective Repository Date:2017-06-07
== END ==
PROVIDERS: Family Provider Family Medicine; PCP Family Medicine; Visit Provider Family Medicine
DX: M85.80 Other specified disorders of bone density and structure, unspecified site (principal)
CPT/HCPCS: 77080

== ENCOUNTER → 2018-04-19 10:45 | Outpatient (CLI) | payer OTHER, SELFPAY ==
[2018-04-19 11:51] LABS: PTHIN 26.6 pg/mL (18.4-80.1); Vitamin D,25 Hydroxy 27.5 ng/mL (29.95-100.01)
[2018-04-19 11:54] LABS: Anion Gap 8 (5-15); BUN 13 mg/dL (7-18); BUN/Creat Ratio 16.7 RATIO (10-20); Chloride 105 mmol/L (98-107); Creatinine, Serum 0.78 mg/dL (0.55-1.02); EST Glomerular Filtration Rate 85 mL/min (>60); Est Glom Filt Rate - Afr Amer 103 mL/min (>60); Glucose 106 mg/dL (74-106); Magnesium 1.9 mg/dL (1.6-2.6); Phosphorus 3.8 mg/dL (2.5-4.9); Potassium 3.8 mmol/L (3.5-5.1); Sodium Level 140 mmol/L (136-145); Thyroid Stim Hormone (TSH) 1.93 uIU/mL (0.358-3.74)
== END ==
PROVIDERS: Family Provider Family Medicine; PCP Family Medicine; Visit Provider Family Medicine
DX: M85.80 Other specified disorders of bone density and structure, unspecified site (principal)
CPT/HCPCS: 36415; 80048; 82306; 82330; 83735; 83970; 84100; 84443

== ENCOUNTER → 2018-05-08 15:56 | Outpatient (CLI) | payer OTHER, SELFPAY ==
--- NOTE | 2018-05-08 15:58 | RAD_ITS ---
STUDY: X-RAY - LEFT FOOT CLINICAL: Fifth digit/metatarsal pain, no specific injury. TECHNIQUE: 3 view(s) of the foot. COMPARISON: None. FINDINGS: There is a small plantar calcaneal enthesophyte. Normal visualized subtalar, talonavicular, calcaneocuboid, tarsal and tarsometatarsal articulations. Normal metatarsi. Normal metatarsophalangeal joint of the great toe. Normal tibial and fibular sesamoid bones. Normal interphalangeal joint of the great toe. Normal phalanges of the great toe. Normal second through fifth metatarsophalangeal joints. Normal interphalangeal joints and phalanges of the lesser toes. The soft tissue structures are unremarkable. RAD/Foot min 3 Views IMPRESSION: Small plantar calcaneal enthesophyte. Otherwise, unremarkable x-ray examination of the left foot. Electronically Signed: Jose Coburn MD at 9:48 EST Tel , Service support ,
== END ==
PROVIDERS: Family Provider Family Medicine; PCP Family Medicine; Referring Provider Family Medicine; Visit Provider Family Medicine
DX: M79.672 Pain in left foot (principal)
CPT/HCPCS: 73630

== ENCOUNTER → 2018-05-17 17:53 | Outpatient (CLI) | payer OTHER, SELFPAY ==
--- NOTE | 2018-05-17 18:05 | MRI_ITS ---
STUDY: MRI LEFT MIDFOOT REASON FOR EXAM: Female, 43 years old. Foot swelling with distal fifth metatarsal pain. No trauma. TECHNIQUE: Standardized fat and water weighted pulse sequences were obtained in all 3 orthogonal planes. COMPARISON: X-rays of the left foot dated May 08, 2018. FINDINGS: Normal talonavicular articulation. Normal calcaneocuboid articulation. Normal navicular-cuneiform articulations. Normal intercuneiform articulations. Normal first tarsometatarsal articulation. Normal Lisfranc ligament. Normal second and third tarsometatarsal articulations. Normal cuboid fourth and cuboid fifth tarsometatarsal articulation. Normal first through fifth metatarsi. Normal tibialis anterior tendon. Normal extensor hallucis longus tendon. Normal extensor digitorum longus tendons. Normal peroneus longus tendon and distal insertion. Normal peroneus brevis tendon and distal insertion. Normal intrinsic muscles of the mid and forefoot region. Normal extensor digitorum brevis muscle. Normal subcutis adipose space. MRI/Lower Ext/No Jt/w/o IMPRESSION: Normal MRI of the midfoot. Electronically Signed: Sylvester Rosado MD at 14:40 EST , Service support ,
--- OUTSIDE RECORDS SUMMARY | 2018-07-22 12:26 | XMS RPT_ITS ---
:1975 Author Organization OHIP Support Name Relationship Address Phone FAYLEANNEE Unavailable [address] + [place] [address] WC Unavailable [address] + [place] [address] RICCO APONTE Unavailable [address] + [place] [address] WC Unavailable [address] + [place] [address] RICCO APONTE Unavailable [address] + [place] [address] WC Unavailable [address] + [place] [address] RICCO APONTE Unavailable [address] + [place] [address] WC Unavailable [address] + [place] [address] RICCO APONTE Unavailable [address] + [place] [address] WC Unavailable [address] + [place] [address] RICCO APONTE Unavailable [address] + [place] [address] WC Unavailable [address] + [place] [address] RICCO APONTE Unavailable [address] + [place] [address] WC Unavailable [address] + [place] [address] RICCO APONTE Unavailable [address] + [place] [address] WC Unavailable [address] + [place] [address] RICCO APONTE Unavailable [address] + [place] [address] [facility] Unavailable [address] + [place] [address] Care Team Providers Name Role Phone Olvin [...] Attending Unavailable Eleazar Ramos Referring Unavailable [facility], [facility] Unavailable JOANIE LUTZ Attending Unavailable Delma Coffey Referring Unavailable Ranney, [facility] Unavailable PROBLEMS PROBLEMS DATE TYPE CONDITION / ATTENDING STATUS SOURCE CODE 03/13/2018 Unknown M79.671 - Pain Jonologan, Active [place] in right foot / [facility] M79.671(ICD-10) Hospital Repository 06/30/2017 Unknown Z12.31 - Lyn Active [place] Encounter for [facility] mammogram for Repository malignant neoplasm of breast / Z12.31(ICD-10) PROCEDURES PROCEDURES No Procedure Records FoundRESULTS RESULTS LOWER EXT/NO JT/W/O Observed: 05/17/2018 Status: F Source: [place] 6:06 PM [facility] REPOSITORY [facility] Imaging Services [address] [place] [address] Lower Ext/No Jt/w/o MR#: [id number] Acct: [id number] Name: PAVEL APONTE ANN Rep #: [id number] : 1975 F 43 From: Sylvester Rosado MD PCP: Olvin Nicholson MD Status: REG CLI Study: Lower Ext/No Jt/w/o Date of Exam: 05/17/18 Exam# [id number] Ordering Dr: Mina Nicholson MD STUDY: MRI [...] Service support , CC: Olvin Nicholson MD [employer] Roller Blast Operator: Signed FOOT MIN 3 VIEWS Observed: 05/08/2018 Status: F Source: [place] 3:59 PM [facility] REPOSITORY [facility] Imaging Services [address] [place] [address] Foot min 3 Views MR#: [id number] Acct: [id number] Name: PAVEL APONTE ANN Rep #: [id number] : 1975 F 43 From: Jose Coburn MD PCP: Olvin Nicholson MD Status: REG CLI Study: Foot min 3 Views Date of Exam: 05/08/18 Exam# [id number] Ordering Dr: Mina Nicholson MD STUDY: X-RAY [...] Service support , CC: Olvin Nicholson MD [employer] Blast Operator: Signed VITAMIN D,25 HYDROXY Collected: 04/19/2018 Status: F Source: [place] 10:48 AM [facility] REPOSITORY TYPE CODE TESTS RESULT OUT OF REFERENCE UNITS RANGE LAB L506.1000 29.95-100.01 ng/mL Low Vitamin D 27.5 25-OH Result Comment: Vitamin D 25(OH) Status Range Deficiency <20 ng/mL (50nmol/L) Insuffciency 20 - 30 ng/mL (50 - 75 nmol/L) Sufficiency 30 - 100 ng/mL (75 - 250 nmol/L) Toxicity >100 ng/mL (>250 nmol/L) Performed By: #### L506.1000 #### [facility] [address] [place], [address] PTHIN Collected: 04/19/2018 Status: F Source: [place] 10:48 AM [facility] REPOSITORY TYPE CODE TESTS RESULT OUT OF RANGE REFERENCE UNITS LAB L509.1000 18.4-80.1 pg/mL Normal PTHIN 26.6 Performed By: #### L509.1000 #### [facility] [address] [place], [address] BASIC METABOLIC Collected: 04/19/2018 Status: F Source: [place] PROFILE (BMP) 10:48 AM [facility] REPOSITORY TYPE CODE TESTS RESULT OUT OF [...] By: #### L500.2500, L501.2300, L501.5200, L501.9520 #### [facility] [address] [place], [address] PHOSPHORUS Collected: 04/19/2018 Status: F Source: [place] 10:48 AM [facility] REPOSITORY TYPE CODE TESTS RESULT OUT OF RANGE REFERENCE UNITS LAB L501.2300 2.5-4.9 mg/dL Normal PHOS 3.8 Performed By: #### L500.2500, L501.2300, L501.5200, L501.9520 #### [facility] [address] [place], [address] MAGNESIUM Collected: 04/19/2018 Status: F Source: [place] 10:48 AM [facility] REPOSITORY TYPE CODE TESTS RESULT OUT OF RANGE REFERENCE UNITS LAB L501.5200 1.6-2.6 mg/dL Normal MG 1.9 Performed By: #### L500.2500, L501.2300, L501.5200, L501.9520 #### [facility] [address] [place], [address] THYROID STIM HORMONE Collected: 04/19/2018 Status: F Source: [place] (TSH) 10:48 AM [facility] REPOSITORY TYPE CODE TESTS RESULT OUT OF RANGE REFERENCE UNITS LAB L501.9520 0.358-3.74 uIU/mL Normal TSH 1.93 Performed By: #### L500.2500, L501.2300, L501.5200, L501.9520 #### [facility] [address] [place], [address] CALCIUM IONIZED Collected: 04/19/2018 Status: F Source: [place] 10:48 AM [facility] REPOSITORY TYPE CODE TESTS RESULT OUT OF RANGE REFERENCE UNITS LAB L3100.9600 4.5-5.6 mg/dL Normal IONIZED CA 5.4 Result Comment: Performed at: - [facility] [id number] Popcorn Vendor: Alex Topete PhD, Phone: [phone] Performed By: #### L3100.9600 #### [facility] (refer to report for specific site) refer to report for address and phone number DEXA BONE DENSITY Observed: 04/10/2018 Status: F Source: [place] STUDY 1:07 PM [facility] REPOSITORY [facility] Imaging Services [address] [place] [address] Dexa Bone Density Study MR#: [id number] Acct: [id number] Name: PAVEL APONTE Rep #: [id number] : 1975 F 43 From: Beka Oakley MD PCP: Olvin Nicholson MD Status: REG CLI Study: Dexa Bone Density Study Date of Exam: 04/10/18 Exam# [id number] Ordering Dr: Mina Nicholson MD STUDY: DUAL [...] Beka Oakley MD at 8:50 EST Tel [phone], Service support , CC: Olvin Nicholson MD [employer] Rol[employer] Blast Operator: Signed LOWER EXT/NO JT/W/O Observed: 03/29/2018 Status: F Source: [place] 10:38 AM [facility] REPOSITORY [facility] Imaging Services [address] [place] [address] Lower Ext/No Jt/w/o MR#: [id number] Acct: [id number] Name: PAVEL APONTE ANN Rep #: [id number] : 1975 F 43 From: Adrian Dewitt MD PCP: Olvin Nicholson MD Status: REG CLI Study: Lower Ext/No Jt/w/o Date of Exam: 03/29/18 Exam# [id number] Ordering Dr: Delma Coffey DPM STUDY: MRI [...] , CC: KATHERYN Coffey; Olvin Nicholson MD [employer] Rol[employer] Blast Operator: Signed LESION (CHOOSE SITE) Observed: 03/19/2018 Status: F Source: [place] 12:00 AM [facility] REPOSITORY Patient: PAVEL APONTE : 1975 (43/F) Acct Num: [id number] Phys: Richard LEACH,Eleazar Unit Num: [id number] Loc: [facility] Specimen: [id number] Received: 03/19/18 - 1507 Spec Type: Lesion [...] at embedding. / AM:neil 03/19/18 TC:1 CPT: 17434 HEADER OPERATION: Shave biopsy PRE-OP DIAGNOSIS: Right neck lesion growing and bleeding TISSUE SUBMITTED: Right neck lesion MICROSCOPIC DESCRIPTION Slides are reviewed. MICROSCOPIC DIAGNOSIS Right neck lesion, shave biopsy: Consistent with inflamed seborrheic keratosis. SJ:neil 03/20/18 Signed Juan Nunez 03/20/18 <signature on file> Performed By: #### PLES #### [facility] [address] [facility] [place], [place], [address] FOOT MIN 3 VIEWS Observed: 03/13/2018 Status: F Source: [place] 11:58 AM [facility] REPOSITORY [facility] Imaging Services [address] [place] [address] Foot min 3 Views MR#: [id number] Acct: [id number] Name: PAVEL APONTE ANN Rep #: [id number] : 1975 F 43 From: Chris Pastor MD PCP: Olvin Nicholson MD Status: REG CLI Study: Foot min 3 Views Date of Exam: 03/13/18 Exam# [id number] Ordering Dr: Mina Nicholson MD STUDY: X-RAY [...] Service support , CC: Olvin Nicholson MD [employer] Roller Blast Operator: Signed CBC, EMPLOYEE Collected: 12/16/2017 Status: F Source: [place] 10:04 AM [facility] REPOSITORY TYPE CODE TESTS RESULT OUT OF [...] Lymph 1.41 Performed By: #### L100.0200 #### [facility] [address] [place], [address] URINALYSIS, EMPLOYEE Collected: 12/16/2017 Status: F Source: [place] 10:04 AM [facility] REPOSITORY TYPE CODE TESTS RESULT OUT OF [...] 25 ESTERASE Performed By: #### L400.0100 #### [facility] [address] [facility] [address] [place], [place], [address] EMPLOYEE PROFILE Collected: 12/16/2017 Status: F Source: [place] 10:04 [facility] REPOSITORY TYPE CODE TESTS RESULT OUT OF [...] LDH 173 Performed By: #### L500.2900 #### [facility] [address] [place], [address] NICOTINE URINE DRUG Collected: 12/16/2017 Status: F Source: [place] SCREEN 10:04 AM [facility] REPOSITORY TYPE CODE TESTS RESULT OUT OF [...] of Nicotine. Performed By: #### L505.6240 #### [facility] [address] [facility] [place], [address] SCREENING MAMM (CAD), Observed: 06/30/2017 Status: F Source: [place] BILAT 1:00 PM [facility] REPOSITORY [facility] Imaging Services [address] [address] SCREENING MAMM (CAD), BILAT MR#: [id number] Acct: [id number] Name: PAVEL APONTE ANN Rep #: [id number] : 1975 F 42 From: Beka Oakley MD PCP: Olvin Nicholson MD Status: [facility] CLI Study: SCREENING MAMM (CAD), BILAT Date of Exam: 06/30/17 Exam# [id number] Ordering Dr: Mina Nicholson MD MAMMOGRAPHY - [...] delay biopsy of a clinically suspicious abnormality. [id number] Electronically Signed: Beka Oakley MD at 15:37 EST Tel [phone], Service support , CC: Olvin Nicholson MD [employer] M[employer] Roller Blast Operator: Signed ALLERGIES ALLERGIES DATE TYPE / CODE NAME / CODE REACTION SEVERITY SOURCE 04/04/2014 Drug amoxicillin/ Unknown Unknown [facility] Allergy/4160 [id number]([facility] [address](SNOMED XNORM) Repository CT) ENCOUNTERS ENCOUNTERS ADMIT/DISCHARGE ACCOUNT ADMITTING ENCOUNTER LOCATION SOURCE NUMBER CLASS 05/17/2018 [id number] Ambulatory [place] [facility] ing:MRI Repository 05/08/2018 [id number] Ambulatory [place] 2 [facility] ing:MTRAD Repository 04/19/2018 [id number] Ambulatory [place] 6 [facility] ing:LAB Repository 04/10/2018 [id number] Ambulatory [place] 5 [facility] ing:OPBD Repository 03/29/2018 [id number] Ambulatory [place] 1 [facility] ing:MRI Repository 03/19/2018 [id number] Ambulatory [place] [facility] ing:LABSPEC Repository 03/13/2018 [id number] Ambulatory [place] [facility] ing:MTRAD Repository 12/15/2017 [id number] Ambulatory [place] [facility] ing:HW Repository 06/30/2017 [id number] Ambulatory [place] [facility] ing:BI Repository PAYERS PAYERS ENCOUNTER GUARANTOR PAYER SUBSCRIBER SOURCE 05/17/2018 RICCO Jones Primary Insurance:[place] [id number] [facility] [id number] Number: Repository [address]Son: 330 [id number] [phone] () Date:9980-58-93[address] [address]EVVXB[place], [place] [address]ZZ: CHECK WEBSITE 05/17/2018 Secondary NOT GIVENUNK [place] Insurance:SELF PAY [facility] Number: Effective Repository Date:2018-05-16 05/08/2018 RICCO Jones Primary Insurance:[place] [id number] [facility] 5005[place]03[place] Number: Repository [id number]: 330 [id number] [phone] () Date:7363-43-95[address] [address]JTQQU[place], [place] [address]HM: CHECK WEBSITE 05/08/2018 Secondary NOT GIVENUNK [place] Insurance:SELF PAY [facility] Number: Effective Repository Date:2018-05-08 04/19/2018 RICCO Jones Primary Insurance:[place] [id number] [facility] [id number], [place] Number: Repository [address]Kkf: 330 [id number] [phone] (HP) Date:2097-01-02NL [address] [address]TXRDDDIPD, [place] [address]GV: CHECK WEBSITE 04/19/2018 Secondary NOT GIVENUNK [place] Insurance:SELF PAY [facility] Number: Effective Repository Date:2018-04-19 04/10/2018 RICCO F Primary Insurance:[place] [id number] [facility] [id number], [place] Number: Repository [address]Prq: 330 [id number] [phone] (HP) Date:0879-70-60QF [address] [address]KSBDLHACD, [place] [address]UH: CHECK WEBSITE 04/10/2018 Secondary NOT GIVENUNK [place] Insurance:SELF PAY [facility] Number: Effective Repository Date:2017-12-27 03/29/2018 RICCO F Primary Insurance:[facility] [place] [id number] [facility] 3588-53-[place], [place] Number: Repository [address]Icj: 330 [id number] [phone] () Date:9176-02-14OA [address] [address]FFWSOKGPO, [place] [address]HG: CHECK WEBSITE 03/29/2018 Secondary NOT GIVENUNK [place] Insurance:SELF PAY [facility] Number: Effective Repository Date:2018-03-19 03/19/2018 RICCO F Primary Insurance:[facility] ANN [place] [id number] [facility] 8928-34-61HKCN[place], [place] Number: Repository [id number]: 330 [id number] [phone] (HP) Date:0288-22-36NS [address] [address]ZGZHPAHMH, [place] [address]ZR: CHECK WEBSITE 03/19/2018 Secondary NOT GIVENUNK [place] Insurance:SELF PAY [facility] Number: Effective Repository Date:2018-03-19 03/13/2018 RICCO Jones Primary Insurance:[facility]10[facility] [place] [facility] 3574-15-27[place], [place] Number: Repository [id number]: 330 [id number] [phone] (HP) Date:3687-42-63YV [address] [address]FPUEFAUKB, [place] [address]AF: CHECK WEBSITE 03/13/2018 Secondary NOT GIVENUNK [place] Insurance:SELF PAY [facility] Number: Effective Repository Date:2018-03-13 12/15/2017 RICCO Jones Primary NOT GIVENUNK [place] [id number] Insurance:SELF PAY [place] Number: Effective Repository [id number]: 330) Date:2017-12-15 [phone] (HP) 06/30/2017 RICCO Jones Primary Insurance:[facility]1039 [facility]: [facility] [id number], [place] Number: Repository [id number]: [id number] [phone] Date:4000-11-50OI [address] (HP) [address]XCMRWPWXF, [place] [address]YX: CHECK WEBSITE 06/30/2017 Secondary NOT GIVENUNK [place] Insurance:SELF PAY [facility] Number: Effective Repository Date:2017-06-07
== END ==
PROVIDERS: Family Provider Family Medicine; PCP Family Medicine; Referring Provider Family Medicine; Visit Provider Family Medicine
DX: M79.672 Pain in left foot (principal)
CPT/HCPCS: 73718

== ENCOUNTER → 2019-12-06 07:23 | Outpatient (CLI) | payer OTHER, SELFPAY ==
[2019-09-07 12:25] VITALS: BMI 22.3
[2019-12-06 07:32] LABS: Absolute Lymphocyte Count 1.18 X10^3/uL (0.83-4.51); Absolute Neutrophil Count 4.6 X10^3/uL (2.0-7.7); Basophil# 0.03 X10^3/uL; Basophil% 0.5 % (0-1); Eosinophil# 0.06 X10^3/uL; Eosinophils% 0.9 % (0-5); Hematocrit 36.5 % (37-47); Hemoglobin 11.9 g/dL (12.0-15.0); Lymphocyte # 1.18 X10^3/ul; Lymphocyte % 18.3 % (19-41); Mean Corp Hgb Conc 32.6 g/dL (32-36); Mean Corpuscular Hgb 31.8 pg (27.0-32.0); Mean Corpuscular Volume 97.6 fL (81-99); Mean Platelet Vol. 10.6 fl (6.2-12.0); Monocyte# 0.52 X10^3/uL; Monocyte% 8.1 % (0-10); NRBC Flagged by Analyzer 0 % (0-5); Neutrophil # 4.61 X10^3/uL (2.7-7.7); Neutrophil % 71.4 % (47-70); Platelet Count 256 K/mm3 (150-450); RBC Distribution Width CV 12.9 % (11.6-14.6); RBC Distribution Width SD 45.7 fl (35.1-43.9); Red Blood Count 3.74 M/mm3 (4.2-5.4); White Blood Count 6.5 K/mm3 (4.4-11.0)
[2019-12-06 07:34] LABS: Color, Urine Yellow (Yellow); Glucose, Dipstick Normal (Normal); Ketone-Dipstick Negative (Negative); Leukocyte Esterase-Dipstick Negative /ul (Negative); Nitrite-Dipstick Negative (Negative); Occult Blood-Urine 25 /ul (Negative); Protein-Dipstick Negative (Negative); Specific Gravity, Urine 1.015 (1.002-1.030); Urine Bilirubin Dipstick Negative (Negative); Urine Clarity Clear (Clear); Urine Urobilinogen Normal (Normal)
[2019-12-06 08:16] LABS: AST(SGOT) 40 U/L (15-37); Alanine Aminotransfer ALT/SGPT 79 U/L (13-56); Albumin, Serum 3.6 g/dL (3.2-5.0); Alkaline Phosphatase 98 U/L (45-117); Anion Gap 4 (5-15); BUN 11 mg/dL (7-18); BUN/Creat Ratio 14.8 RATIO (10-20); Bilirubin, Direct 0.11 mg/dL (0.00-0.30); Calcium,Total 8.9 mg/dL (8.5-10.1); Chloride 107 mmol/L (98-107); Cholesterol 201 mg/dL (200); Creatinine, Serum 0.74 mg/dL (0.55-1.02); EST Glomerular Filtration Rate 89 mL/min (>60); Est Glom Filt Rate - Afr Amer 108 mL/min (>60); Globulin 3.7 g/dL (2.2-4.2); Glucose 93 mg/dL (74-106); High Density Lipoprotein 69 mg/dL; LDH 146 U/L (84-246); Phosphorus 3.1 mg/dL (2.5-4.9); Potassium 4.1 mmol/L (3.5-5.1); Protein, Total 7.3 g/dL (6.4-8.2); Sodium Level 139 mmol/L (136-145); Triglycerides 192 mg/dL; Uric Acid 6.4 mg/dL (2.6-6.0); Very Low Density Lipoprotein 38 mg/dL (5-40)
[2019-12-06 10:12] LABS: Vitamin D,25 Hydroxy 46.8 ng/mL
== END ==
PROVIDERS: Nurse Practitioner Family; PCP Family Medicine; Visit Provider Family Medicine
DX: E55.9 Vitamin D deficiency, unspecified (principal)
CPT/HCPCS: 36415; 82306

== ENCOUNTER → 2019-12-06 14:40 | Outpatient (CLI) | payer OTHER, SELFPAY ==
[2019-12-06 14:38] VITALS: BMI 22.3
--- NOTE | 2019-12-06 14:41 | RAD_ITS ---
STUDY: X-RAY - UNILATERAL RIBS ( RIGHT ) REASON FOR EXAM: Female, 44 years old. Pain anterior ribs under right breast, no trauma TECHNIQUE: 2 view(s) of the ribs. COMPARISON: Comparison is made with prior study dated 02/22/2016. FINDINGS: Normal visualized ribs without a demonstrated fracture. The visualized lung is clear and expanded. RAD/Ribs Unil 2V No CXR IMPRESSION: Normal x-ray examination of the ribs. Electronically Signed: Beka Oakley, at 15:01 EDT , Service support ,
== END ==
PROVIDERS: PCP Family Medicine; Referring Provider Physician Assistant Surgical; Visit Provider Physician Assistant Surgical
DX: S20.211A Contusion of right front wall of thorax, initial encounter (principal)
CPT/HCPCS: 71100

== ENCOUNTER → 2019-12-12 08:54 | Outpatient (CLI) | payer OTHER, SELFPAY ==
[2019-12-06 14:38] VITALS: BMI 22.3
--- NOTE | 2019-12-12 08:57 | US_ITS ---
STUDY: ABDOMINAL ULTRASOUND - RIGHT UPPER QUADRANT REASON FOR VISIT: Female, 44 years old ELEVATED LFT''S TECHNIQUE: Ultrasound evaluation of the right upper quadrant was performed with real-time and static amador-scale imaging. TECHNICAL QUALITY: Adequate. COMPARISON: None. FINDINGS: Liver: The liver measures 16.1 cm. There is normal echogenicity of the liver. The bile ducts are within normal limits. There is hepatic color flow. The direction of portal flow is hepatopetal. There is no demonstrated mass lesion. Gallbladder: Normal distended gallbladder. The gallbladder wall measures 1.9 mm. There is a negative sonographic Guevara''s sign. There is no pericholecystic fluid. There are no gallstones. Common Bile Duct (C.B.D.): The common bile duct measures 3.0 mm. Pancreas: Normal size of the head, body and tail of the pancreas. There is normal echogenicity of the pancreas. There is no demonstrated pancreatic mass or cyst. Right Kidney: Normal size of the right kidney. The right kidney measures 10.1 cm x 6.4 cm x 3.5 cm. Normal renal cortex. The right cortex measures 1.0 cm. There is no demonstrated renal mass or cyst. There is no right hydronephrosis. US/Abdomen Limited IMPRESSION: Normal right upper quadrant ultrasound examination. Electronically Signed: Beka Oakley, at 10:08 EDT , Service support ,
== END ==
PROVIDERS: PCP Family Medicine; Referring Provider Family Medicine; Visit Provider Family Medicine
DX: R79.89 Other specified abnormal findings of blood chemistry (principal)
CPT/HCPCS: 76705

== ENCOUNTER → 2019-12-13 09:50 | Outpatient (CLI) | payer OTHER, SELFPAY ==
[2019-12-06 14:38] VITALS: BMI 22.3
[2019-12-13 09:51] LABS: Mucous, Urine 0 SEEN /hpf (<or=2+)
[2019-12-13 09:56] LABS: Color, Urine Yellow (Yellow); Glucose, Dipstick Normal (Normal); Ketone-Dipstick Negative (Negative); Leukocyte Esterase-Dipstick 25 /ul (Negative); Nitrite-Dipstick Negative (Negative); Occult Blood-Urine 150 /ul (Negative); Protein-Dipstick Negative (Negative); Specific Gravity, Urine 1.025 (1.002-1.030); Urine Bilirubin Dipstick Negative (Negative); Urine Clarity Clear (Clear); Urine Urobilinogen Normal (Normal)
[2019-12-13 10:03] LABS: Red Blood Cells-Urine 0-5 SEEN /hpf (0-5); Squamous Epithelial Cells - UA 5-10 SEEN /hpf (5-10); White Blood Cells 5-10 SEEN /hpf (0-5)
[2019-12-13 10:05] LABS: Bacteria 3+ /hpf (None Seen)
[2019-12-13 10:12] LABS: AST(SGOT) 33 U/L (15-37); Alanine Aminotransfer ALT/SGPT 74 U/L (13-56); Albumin, Serum 3.7 g/dL (3.2-5.0); Alkaline Phosphatase 107 U/L (45-117); Bilirubin, Direct 0.12 mg/dL (0.00-0.30); Globulin 3.9 g/dL (2.2-4.2); Protein, Total 7.6 g/dL (6.4-8.2)
== END ==
PROVIDERS: PCP Family Medicine; Visit Provider Family Medicine
DX: R31.29 Other microscopic hematuria (principal); R79.89 Other specified abnormal findings of blood chemistry
CPT/HCPCS: 80076; 81001

== ENCOUNTER → 2019-12-17 15:19 | Outpatient (CLI) | payer OTHER, SELFPAY ==
[2019-12-06 14:38] VITALS: BMI 22.3
== END ==
PROVIDERS: PCP Family Medicine; Referring Provider Family Medicine; Visit Provider Family Medicine
DX: R10.9 Unspecified abdominal pain (principal); R79.89 Other specified abnormal findings of blood chemistry
CPT/HCPCS: 87086; 87088

== ENCOUNTER → 2020-01-16 11:11 | Outpatient (CLI) | payer OTHER, SELFPAY ==
[2019-12-06 14:38] VITALS: BMI 22.3
[2020-01-16 10:38] VITALS: BMI 27.4
[2020-01-16 13:22] LABS: AST(SGOT) 29 U/L (15-37); Alanine Aminotransfer ALT/SGPT 64 U/L (13-56); Alkaline Phosphatase 118 U/L (45-117); Bilirubin, Direct 0.13 mg/dL (0.00-0.30)
== END ==
PROVIDERS: PCP Family Medicine; Referring Provider Family Medicine; Visit Provider Family Medicine
DX: R79.89 Other specified abnormal findings of blood chemistry (principal)
CPT/HCPCS: 80076

== ENCOUNTER → 2020-08-21 07:58 | Outpatient (CLI) | payer OTHER, SELFPAY ==
[2020-01-16 10:38] VITALS: BMI 27.4
[2020-08-21 08:14] LABS: Hematocrit 36.4 % (37-47); Hemoglobin 11.9 g/dL (12.0-15.0); Mean Corp Hgb Conc 32.7 g/dL (32-36); Mean Corpuscular Volume 97.8 fL (81-99); Mean Platelet Vol. 10.5 fl (6.2-12.0); Platelet Count 327 K/mm3 (150-450); RBC Distribution Width CV 13.4 % (11.6-14.6); RBC Distribution Width SD 48.5 fl (35.1-43.9); Red Blood Count 3.72 M/mm3 (4.2-5.4); White Blood Count 8.9 K/mm3 (4.4-11.0)
[2020-08-21 08:51] LABS: Thyroid Stim Hormone (TSH) 3.13 uIU/mL (0.358-3.74)
== END ==
PROVIDERS: PCP Family Medicine; Visit Provider Obstetrics & Gynecology
DX: N92.0 Excessive and frequent menstruation with regular cycle (principal)
CPT/HCPCS: 36415; 84443; 85027

== ENCOUNTER → 2020-08-26 10:57 | Outpatient (CLI) | payer OTHER, SELFPAY ==
[2020-01-16 10:38] VITALS: BMI 27.4
--- NOTE | 2020-08-26 10:58 | US_ITS ---
STUDY: ULTRASOUND OF THE FEMALE PELVIS - COMPLETE REASON FOR EXAM: Female, 45 years old. Excessive and frequent menstruation with regular cycle LMP: 07/22/2020. TECHNIQUE: Transabdominal and Transvaginal TECHNICAL QUALITY: Adequate. COMPARISON: None. FINDINGS: The uterus is retroflexed and is in a midline position. The uterus measures 8.5 cm x 6.5 cm x 5.5 cm. Normal uterine cervix. The endometrium measures 5 mm in thickness, and is hyperechoic. There is no demonstrated endometrial mass. There is a 3.3 cm x 4.1 cm x 3.1 cm fibroid of the body of the uterus. The myometrium is of heterogeneous echotexture. I.U.D. - The patient does not have an I.U.D. The right ovary is visualized. The right ovary measures 4 cm x 3 cm x 3 cm. There is a 3.1 cm x 2.4 cm x 2.4 cm simple cyst. There is no visualized right adnexal mass or complex lesion. There is normal arterial and normal venous vascularity. The left ovary is visualized. The left ovary measures 2.9 cm x 2.2 cm x 2.5 cm. There is a 2.1 cm x 2 cm x 2 cm simple cyst. There is no visualized left adnexal mass or complex lesion. There is normal arterial and normal venous vascularity. There is no fluid in the cul-de-sac. The pre void volume of the bladder was 265 ml. US/Pelvic (Non ) IMPRESSION: 3.3 cm x 4.1 cm by 3.1 cm fibroid of the body of the uterus. Bilateral ovarian cysts. Electronically Signed: Beka Oakley MD at 14:02 EDT , Service support ,
--- NOTE | 2020-08-26 10:58 | US_ITS ---
STUDY: ULTRASOUND OF THE FEMALE PELVIS - COMPLETE REASON FOR EXAM: Female, 45 years old. Excessive and frequent menstruation with regular cycle LMP: 07/22/2020. TECHNIQUE: Transabdominal and Transvaginal TECHNICAL QUALITY: Adequate. COMPARISON: None. FINDINGS: The uterus is retroflexed and is in a midline position. The uterus measures 8.5 cm x 6.5 cm x 5.5 cm. Normal uterine cervix. The endometrium measures 5 mm in thickness, and is hyperechoic. There is no demonstrated endometrial mass. There is a 3.3 cm x 4.1 cm x 3.1 cm fibroid of the body of the uterus. The myometrium is of heterogeneous echotexture. I.U.D. - The patient does not have an I.U.D. The right ovary is visualized. The right ovary measures 4 cm x 3 cm x 3 cm. There is a 3.1 cm x 2.4 cm x 2.4 cm simple cyst. There is no visualized right adnexal mass or complex lesion. There is normal arterial and normal venous vascularity. The left ovary is visualized. The left ovary measures 2.9 cm x 2.2 cm x 2.5 cm. There is a 2.1 cm x 2 cm x 2 cm simple cyst. There is no visualized left adnexal mass or complex lesion. There is normal arterial and normal venous vascularity. There is no fluid in the cul-de-sac. The pre void volume of the bladder was 265 ml. US/Transvaginal Non- IMPRESSION: 3.3 cm x 4.1 cm by 3.1 cm fibroid of the body of the uterus. Bilateral ovarian cysts. Electronically Signed: Beka Oakley MD at 14:02 EDT , Service support ,
== END ==
PROVIDERS: PCP Family Medicine; Referring Provider Obstetrics & Gynecology; Visit Provider Obstetrics & Gynecology
DX: N92.0 Excessive and frequent menstruation with regular cycle (principal)
CPT/HCPCS: 76830; 76856

== ENCOUNTER → 2021-03-26 | Outpatient (CLI) | payer BC, SELFPAY | END | disposition home or self-care (01) | LOC: LABSPEC 15:18 | PROVIDERS: PCP Family Medicine; Visit Provider Physician Assistant | DX: R50.9 Fever, unspecified (principal) | CPT/HCPCS: 87635; U0005; U0003 ==

== ENCOUNTER → 2021-03-29 | Outpatient (CLI) | payer BC, SELFPAY | END | disposition home or self-care (01) | PROVIDERS: PCP Family Medicine; Visit Provider Physician Assistant | DX: R50.9 Fever, unspecified (principal) | CPT/HCPCS: 87633 ==

== ENCOUNTER 2022-06-09 05:54 | Day surgery (SDC) | payer BC, SELFPAY ==
--- NOTE | 2022-05-23 16:01 | HP.PCM_ITS ---
History and Physical Date of Admission: 06/09/22 HPI: The patient is a 47 year old female presenting for pre-operative visit. She is scheduled for hsyteroscopy with endometrial ablation and IUD removal, for menorrhagia on 06/09/22. Procedure discussed along with risks, benefits and complications. Other alternatives discussed for management. Consent form signed? Yes. ? ? PAST MEDICAL HISTORY PAST MEDICAL HISTORY Diagnosis Date ? NEGATIVE MEDICAL HISTORY ? ? ? PAST SURGICAL HISTORY PAST SURGICAL HISTORY Procedure Laterality Date ? EXCISION GANGLION WRIST DORSAL/VOLAR PRIMARY Right 2004 ? EXCISION GANGLION WRIST DORSAL/VOLAR PRIMARY Left 2001 ? palm of hand ? INSERTION OF IUD ? 09/09/2020 ? ? ? CURRENT MEDICATIONS Current Outpatient Medications Medication Sig Dispense Refill ? PARoxetine (PAXIL) 10 mg tablet Take 1 tablet by mouth once daily. 30 tablet 11 ? levonorgestrel (MIRENA) 20 mcg/24 hours (5-6 yrs) 52 mg IUD 1 Each by INTRAUTERINE route as directed. 1 Each 0 ? calcium carbonate (OS-UNA 500) 500 mg calcium (1,250 mg) tablet Calcium CALCIUM TABS as directed CALCIUM TABS [id number] Nadira Chairez LPN 02-11-2017 [facility] ([id number]) ? ? ? Cholecalciferol, Vitamin D3, 2,000 unit cap Cholecalciferol VITAMIN D3 CAPS as directed CHOLECALCIFEROL CAPS [id number] Nadira Chairez LPN 02-11-2017 [facility] ([address]) ? ? ? Multivitamin capsule MULTIPLE VITAMIN MULTIVITAMINS CAPS as directed MULTIPLE VITAMIN [id number] Nadira Chairez LPN 02-11-2017 [facility] Now [facility] ([address]) ? ? ? No current facility-administered medications for this visit. ? ? ALLERGIES: Amoxicillin ? PERSONAL HISTORY: SOCIAL HISTORY Social History ? Tobacco Use ? Smoking status: Never ? Smokeless tobacco: Never Vaping Use ? Vaping Use: Never used Substance Use Topics ? Alcohol use: Yes ? Drug use: Never ? FAMILY HISTORY: FAMILY HISTORY FAMILY HISTORY Problem Relation Age of Onset ? Hypertension Mother ? ? COPD Mother ? ? Skin Cancer Mother ? ? Hypertension Father ? ? ? REVIEW OF SYMPTOMS: GENERAL: denies fevers or chills ENDOCRINOLOGY: has not been on steroids Cardiology : denies palpitations or chest pain Respiratory: denies SOB or cough Hematology: denies history of prolonged bleeding or easy bruising or VTE Allergy: Denies history of personal or family history of allergy to anesthesia ? PHYSICAL EXAMINATION: ? VITALS: Last menstrual period 03/22/2022. ? GENERAL: The patient is well nourished, well hydrated in no acute distress. , The patient is oriented to time, place, and person. NECK: Supple. No lynphadenopathy, normal thyroid, no thyromegaly. LUNGS: Clear to auscultation bilaterally. no wheezes, rhonchi or rales HEART: Regular rate and rhythm, Normal heart sounds, and No murmurs or gallops ? IMPRESSION: Menorrhagia ? PLAN: The risks/benefits/alternatives and personal involved for the planned hysteroscopy with endometrial ablation and Mirena IUD removal were reviewed with the patient. Her questions were answered to her satisfaction and she desires to proceed. Consent was signed. I reviewed with her postop instructions and expectations. D/w her fibroid size. ? ? I have reviewed and updated past medical and surgical history, medications and allergies Assessment & Plan Assessment/Plan (1) Menorrhagia: (2) Intramural uterine fibroid:
[2022-06-09] VITALS (11 sets, daily range): BP systolic 80–120; BP diastolic 55–77; PULSE 54–72; RESP 16; TEMP 36.1–37; O2SAT 91–99; BMI 29.9
[2022-06-09 06:29] LABS: Internal QC Validated? YES +Cl - CLEAR BKGD
[2022-06-09 06:30] LABS: Pregnancy, Urine Negative Negative
[2022-06-09 06:43] LABS: Hematocrit 39.5 % (37-47); Hemoglobin 13.3 g/dL (12.0-15.0); Mean Corp Hgb Conc 33.7 g/dL (32-36); Mean Corpuscular Volume 95.2 fL (81-99); Mean Platelet Vol. 11.2 fl (6.2-12.0); Platelet Count 263 K/mm3 (150-450); RBC Distribution Width CV 12.5 % (11.6-14.6); RBC Distribution Width SD 43.8 fl (35.1-43.9); Red Blood Count 4.15 M/mm3 (4.2-5.4); White Blood Count 6.2 K/mm3 (4.4-11.0)
[2022-06-09] MEDS: Celecoxib 200 MG Capsule 400 MG PO (06:45)
[2022-06-09] MEDS: Acetaminophen 500 MG Tablet 1000 MG PO (06:45)
[2022-06-09] MEDS: Lactated Ringers 1,000 ML 15 ML IV (06:47)
[2022-06-09] MEDS: Lidocaine 1% /Epi 1:100 (20ml) 20 ML Vial (07:50)
--- NOTE | 2022-06-09 08:02 | OP.PCM_ITS ---
Problems Associated Problem List Diagnoses (1) Intramural uterine fibroid: (2) Menorrhagia: Report of Operation Date of Procedure: 06/09/22 Pre-Operative Diagnosis: menorrhagia, intramural uterine fibroid Post-Operative Diagnosis: same Surgery/Procedure Performed:: Hysteroscopy with Divina endometrial ablation, Mirena IUD removal before ablation, reinsertion after ablation Description of Surgical Findings:: normal cervix and vagina, normal endometrial cavity Surgeon: Brandi Springer technical training manager: None Type of Anesthesia: MAC/Supplemental/Local Anesthesiologist: Naima Paiz Special Medications: none Specimen's removed: none Drains: none Estimated Blood Loss (mL): 10 Fluids Replaced: 800 Description of Procedure: The patient was taken to the OR where she was prepped and draped in dorsal lithotomy position. The weighted speculum was placed in the vagina and the anterior lip of the cervix was grasped with a single-tooth tenaculum. A paracervical block was administered with 1% lidocaine with 1-100,000 epinephrine solution. The cervix was dilated serially with Hegar dilators. The 5mm hysteroscope was placed into the uterine cavity and the above findings were noted. Bilateral tubal ostia were identified. The uterus sounded to 10cm and the cervical length was 3.5cm. The endometrial cavity length was 5.5cm. The hysteroscope was removed. The Divina device was set to 5.5cm. The instrument was then seated into the endometrial cavity and the indicator was in the green. The cervical seal balloon was inflated and the uterine integrity test was passed. The ablation procedure was initiated and completed without interruption. During the ablation procedure gentle traction was held on the tenaculum and the Divina device was held up against the uterine fundus. When the ablation procedure was completed the Divina was removed. The tenaculum was removed and the tenaculum site was noted to be hemostatic. All sponge and needle counts were correct. A vaginal sweep was performed by me. The patient was awakened and taken to the recovery room in stable condition. Hysteroscopic ins: 100cc normal saline Hysteroscopic outs:60cc Grafts/Implants Used: none Procedure Start Time: 07:50 Procedure Stop Time: 08:50 Complications none Admit VTE Documentation VTE Present on Admission: No VTE Mechan Device Prophylaxis: SCD's VTE Pharm Prophylaxis ordered?: No Reason prophylaxis not ordered:: Procedure Not Indicated
--- NOTE | 2022-06-09 08:07 | DCINST_ITS ---
Discharge Instructions Diet Discharge Diet: No restrictions Activity Return to work on:: 06/10/22 May resume sexual activity in: 2 weeks Lifting Restrictions: none Dressing / Incision Call your doctor if your incision/area has: Sudden Increased Bleeding and Foul Smelling Discharge Call your doctor if you observe: Fever of 101 or Higher and Using more than 1 pad per hour (for 2 hrs in a row) Follow Up Care Please Follow Up With: Brandi Springer MD When: 2-4 weeks or as needed. Call [phone] to make an appointment or with any concerns. Test Results: Test results from this visit will be discussed in further detail at your follow- up appointment, if applicable. Discharge Plan Admission Primary Reason for Your Visit: Endometrial ablation Attending Provider: Brandi Springer Primary Care Provider: Mina Nicholson Discharge Orders/Prescriptions Prescriptions: No Action multivitamin Tablet 1 tab PO DAILY paroxetine HCl 10 mg tablet 10 mg PO DAILY cholecalciferol (vitamin D3) [Vitamin D3] 50 mcg (2,000 unit) Capsule 50 mcg PO DAILY Referrals / Follow Up: Mina Nicholson MD [Primary Care Provider] - Disposition Discharge Orders: Discharge Patient (Routine); Ordered 06/09/22 Ordered By: Dr. Brandi Springer
[2022-06-09] MEDS: Lactated Ringers 1,000 ML 75 ML IV (09:25)
[2022-06-09] MEDS: oxyCODONE 5 MG Tablet PO (09:47)
== END 2022-06-09 10:41 | disposition home or self-care (01) ==
LOC: SDC 05:57 → AC 05:59
PROVIDERS: PCP Family Medicine; Referring Provider Obstetrics & Gynecology; Visit Provider Obstetrics & Gynecology
PROC: 0U5B8ZZ Destruction of Endometrium, Via Natural or Artificial Opening Endoscopic (ICD-10-PCS; CPT 58558; principal; 2022-06-09 07:15)
DX: N92.0 Excessive and frequent menstruation with regular cycle (principal); D25.1 Intramural leiomyoma of uterus; Z80.8 Family history of malignant neoplasm of other organs or systems
CPT/HCPCS: 58563; 58300; 81025; 85027; J7120; J2405

== ENCOUNTER → 2024-03-26 | Outpatient (CLI) | payer BC, SELFPAY | END | disposition home or self-care (01) | PROVIDERS: PCP Family Medicine; Referring Provider Family Medicine; Visit Provider Family Medicine | DX: Z12.31 Encounter for screening mammogram for malignant neoplasm of breast (principal); Z78.0 Asymptomatic menopausal state | CPT/HCPCS: 77063; 77067; 77080 ==